=== PATIENT | male | born 1965 | race Caucasian/White ===

== ENCOUNTER 2016-12-26 19:06 | Emergency (ER) | payer OTHER ==
[~2016-12-26] VITALS: Ht 162.6 cm; Wt 85.0 kg
[2016-12-26] MEDS ORDERED: METF500T4 PO (19:35)
[2016-12-26] MEDS ORDERED: LOSA50TA37 PO (19:35)
[2016-12-26] MEDS ORDERED: [UNRECOGNIZED DRUG - REMARK] PO (19:35)
[2016-12-26 19:47] LABS: GLUCOSE,POINT OF CARE 173 MG/DL (70-110)
[2016-12-26 21:20] VITALS: BP 147/94
== END 2016-12-26 22:00 | disposition home or self-care (01) ==
LOC: EMS 19:09
DX: S91.205A Unspecified open wound of left lesser toe(s) with damage to nail, initial encounter (principal); I10 Essential (primary) hypertension; E11.9 Type 2 diabetes mellitus without complications; E78.00 Pure hypercholesterolemia, unspecified; W23.0XXA Caught, crushed, jammed, or pinched between moving objects, initial encounter; Y93.01 Activity, walking, marching and hiking; Y92.9 Unspecified place or not applicable; Y99.9 Unspecified external cause status
CPT/HCPCS: 82962; 99284